=== PATIENT | female | born 2000 | race Two or more races ===

== ENCOUNTER 2023-01-10 14:32 | Outpatient (CLI) | payer OTHER | END 2023-01-10 16:07 | disposition home or self-care (01) | LOC: PRENATAL 14:32 | PROVIDERS: ATTEND Obstetrics & Gynecology Maternal & Fetal Medicine | DX: O35.9XX0 Maternal care for (suspected) fetal abnormality and damage, unspecified, not applicable or unspecified (principal); O35.3XX0 Maternal care for (suspected) damage to fetus from viral disease in mother, not applicable or unspecified; O44.00 Complete placenta previa NOS or without hemorrhage, unspecified trimester; Z3A.20 20 weeks gestation of pregnancy ==

== ENCOUNTER 2023-04-08 09:50 | Outpatient (CLI) | payer OTHER | END 2023-04-08 10:56 | disposition home or self-care (01) | LOC: PRENATAL 09:50 | PROVIDERS: ATTEND Obstetrics & Gynecology Maternal & Fetal Medicine | DX: O26.849 Uterine size-date discrepancy, unspecified trimester (principal); O36.8199 Decreased fetal movements, unspecified trimester, other fetus; Z3A.32 32 weeks gestation of pregnancy ==

== ENCOUNTER 2023-05-09 08:27 | Inpatient (IN) | payer OTHER ==
[~2023-05-09] VITALS: Ht 152.4 cm; Wt 78.0 kg
[2023-05-09] MEDS ORDERED: PRENATAL TABLE1 EAC5 PO (09:18)
[2023-05-09] MEDS ORDERED: VITAMIN C500 M2 PO (09:19)
[2023-05-09 09:39] LABS: URINE APPEARANCE Clear; URINE BILIRRUBIN Negative (NEGATIVE); URINE BLOOD Negative; URINE COLOR Yellow; URINE GLUCOSE Negative (NEGATIVE); URINE LEUKOCYTE Small; URINE NITRATE Negative; URINE PROTEIN Negative (NEGATIVE); URINE UROBILINOGEN 0.2 E.U./dl
[2023-05-09 09:43] LABS: URINE BACTERIA 2175.9 uL (0.0-1933); URINE EPITHELIAL CELLS 16.6 uL (0.0-38.8); URINE WBC 37.8 uL (0.0-23.2)
[2023-05-09 09:49] LABS: HEMATOCRIT 36.1 % (36.0-45.00); HEMOGLOBIN 12.2 g/dL (12.0-15.00); MEAN CELL VOLUME 89.9 fL (80.00-100.00); MEAN CORPUSCULAR HEMOGLOBIN 30.2 pg (27.00-32.0); MEAN CORPUSCULAR HGB CONC 33.7 g/dl (32.0-36.0); PLATELET COUNT 178 K/uL (150-450); RED BLOOD COUNT 4.02 M/uL (4.00-6.00); RED CELL DISTRIBUTION WIDTH 13.8 % (11.5-14.5)
[2023-05-09 09:54] LABS: URINE RBC 0.5 uL (0.0-20.8)
[2023-05-09 10:14] LABS: ALBUMIN 2.9 gm/dL (3.4-5.0); BILIRUBIN TOTAL 0.4 mg/dL (0.3-1.2); CALCIUM 8.6 mg/dL (8.5-10.1); CREATININE SERUM 0.67 mg/dL (0.55-1.02); GFR 109.07; GLOBULINA 3.8 G/DL (2.4-3.5); POTASSIUM 4.32 mEq/L (3.5-5.1); TOTAL PROTEIN 6.7 gm/dL (6.4-8.2)
[2023-05-09 10:16] LABS: INR < 0.93; PARTIAL THROMBOPLASTIN TIME 25.2 SECONDS (22.0-34.0)
[2023-05-09 10:18] LABS: PROTHROMBIN TIME 9.5 SECONDS (9.0-11.5)
[2023-05-09 16:50] LABS: ABG PH 7.389 (7.35-7.45)
[2023-05-09 16:51] LABS: ABG PO2 31.9 mmHg (80-100); BASE EXCESS -3.5 mmol/l; BICARBONATE 20.7 mmol/l (23-25); SaO2 59.7 %; Tco2 21.8 mmol/l; o2 21 %
== END 2023-05-11 12:04 | disposition home or self-care (01) | DRG 806 ==
LOC: LDR 08:27 → OB/GYN 05-10 00:52
PROVIDERS: Obstetrics & Gynecology; ADMIT Student in an Organized Health Care Education/Training Program; ATTEND Student in an Organized Health Care Education/Training Program
PROC: 10E0XZZ Delivery of Products of Conception, External Approach (ICD-10-PCS; principal; 2023-05-09)
PROC: 0KQM0ZZ Repair Perineum Muscle, Open Approach (ICD-10-PCS; 2023-05-09)
PROC: 0UQMXZZ Repair Vulva, External Approach (ICD-10-PCS; 2023-05-09)
PROC: 4A1HXCZ Monitoring of Products of Conception, Cardiac Rate, External Approach (ICD-10-PCS; 2023-05-09)
DX: O70.1 Second degree perineal laceration during delivery (principal); O71.82 Other specified trauma to perineum and vulva; O41.03X0 Oligohydramnios, third trimester, not applicable or unspecified; Z37.0 Single live birth; Z3A.37 37 weeks gestation of pregnancy

== ENCOUNTER 2025-04-15 09:00 | Day surgery (SDC) | payer OTHER ==
[2025-04-13 11:16] LABS: BASO % 0.6 % (0.1-1.2); EOS # 0.24 (0.04-0.54); EOS % 4.6 % (0.7-7.0); LYMPH # 1.98 (1.18-3.74); LYMPH % 38.1 % (19.3-53.1); MEAN PLATELET VOLUME 10.60 fl (9.4-12.4); MONO # 0.26 (0.24-0.82); MONO % 5.0 % (4.7-12.5); NEUT # 2.69 (1.56-6.13); NEUT % 51.7 % (34.0-71.1); RED CELL DISTRIBUTION WIDTH 13.0 % (11.6-14.4)
[2025-04-13 11:23] LABS: URINE APPEARANCE Clear; URINE BILIRRUBIN Negative (NEGATIVE); URINE BLOOD Negative; URINE COLOR Yellow; URINE GLUCOSE Negative (NEGATIVE); URINE KETONE Negative (NEGATIVE); URINE LEUKOCYTE Trace; URINE NITRATE Negative; URINE PROTEIN Negative (NEGATIVE); URINE UROBILINOGEN 0.2 E.U./dl
[2025-04-13 11:30] LABS: URINE BACTERIA 75.5 uL (0.0-1933); URINE EPITHELIAL CELLS 7.5 uL (0.0-38.8); URINE RBC 6.8 uL (0.0-20.8); URINE WBC 5.0 uL (0.0-23.2)
[2025-04-13 11:35] LABS: URINE CAST 0.00 uL (0.0-1.40)
[2025-04-13 11:38] LABS: INR 1.04
[2025-04-13 11:41] VITALS: BP 103/67
[2025-04-13 12:19] LABS: ALT/SGPT 64.0 U/L (12-78); AST/SGOT 73.0 U/L (15-37); BILIRUBIN TOTAL 0.73 mg/dL (0.3-1.2); BUN CREA RATIO 19.0 (7.0-25.0); CREATININE SERUM 0.64 mg/dL (0.55-1.02); GFR 114.0; GLOBULINA 3.1 G/DL (2.4-3.5); GLUCOSE FASTING 85.0 mg/dL (65-100); OSMOLALITY SERUM 284.0 MOSM/KG (275-295); TSH 1.3 uIU/mL (0.358-3.74)
[~2025-04-15] VITALS: Ht 332.7 cm; Wt 56.7 kg
[~2025-04-15 09:00] MED LIST: MAGNESIUM500 MG PO; PRENATAL TABLE1 EAC5 PO; VITAMIN C500 M2 PO
[2025-04-15] MEDS ORDERED: CEFOXITIN SODIUM 2,000 MG VIAL IV ONE (10:44)
[2025-04-15] MEDS ORDERED: POVIDONE-IODINE 118 ML BOTT TOP ONE (13:03)
[2025-04-15] MEDS ORDERED: PROMETHAZINE HCL 50 MG/ML AMPUL IM ONE (13:45)
[2025-04-15] MEDS ORDERED: NAPR500T14 PO (13:45)
[2025-04-15] MEDS ORDERED: AVIDOXY100 MG PO (13:45)
== END 2025-04-15 19:15 | disposition home or self-care (01) ==
LOC: CIR.AMB 09:00
PROVIDERS: ATTEND Obstetrics & Gynecology
DX: D25.0 Submucous leiomyoma of uterus (principal); N84.0 Polyp of corpus uteri; N92.0 Excessive and frequent menstruation with regular cycle